=== PATIENT | female | born 1985 | race Caucasian/White ===

== ENCOUNTER → 2024-02-04 06:29 | Day surgery (SDC) | payer BC, SELFPAY | LOC: GI 06:29 | PROVIDERS: ATTENDING PHYSICIAN Internal Medicine | DX: K62.5 Hemorrhage of anus and rectum (principal); R19.7 Diarrhea, unspecified; K64.8 Other hemorrhoids; K63.5 Polyp of colon; R12 Heartburn; K29.50 Unspecified chronic gastritis without bleeding | CPT/HCPCS: 45380; 43239; 88305; 88342 ==

== ENCOUNTER → 2024-02-06 07:18 | Outpatient (REF) | payer BC, SELFPAY ==
[2024-02-06 08:22] LABS: Urine Albumin Negative (Neg - Trace); Urine Bilirubin Negative (Negative); Urine Character Clear (Clear); Urine Color Yellow; Urine Glucose Negative (Negative); Urine Ketone Negative (Negative); Urine Leukocyte Trace (Negative); Urine Nitrite Negative (Negative); Urine Occult Blood Negative (Negative); Urine Urobilinogen Negative (Neg - 1+)
[2024-02-06 08:28] LABS: % Basophils 0.7 % (0-2); % Eosinophils 1.1 % (0-6); % Immature Granulocytes 0.2 % (0-0.5); % Lymphocytes 36.5 % (20.5-51.1); % Monocytes 6.7 % (1.7-9.3); % Neutrophils 54.8 % (42.2-75.2); Absolute Eosinophils 0.1 10^3/uL (0-0.7); Absolute Monocytes 0.4 10^3/uL (0.1-0.6); Absolute Neutrophils 2.9 10^3/uL (1.4-6.5); Hematocrit 37.4 % (37.0-47.0); Hemoglobin 12.1 g/dL (12.0-16.0); Mean Corp Hgb Conc. 32.4 g/dL (33.0-37.0); Mean Corpuscular Hgb 29.7 pg (27.0-31.0); Mean Corpuscular Volume 91.9 fL (81.0-99.0); Nucleated Red Blood Cells % 0 %; Platelet Count 226 10^3/uL (130-400); Red Blood Cell Count 4.07 10^6/uL (4.20-5.40); Red Cell Dist. Width 12.1 % (11.5-14.5); White Blood Cell Count 5.3 10^3/uL (4.8-10.8)
[2024-02-06 08:38] LABS: Urine Bacteria Few (Negative); Urine Red Blood Cell 0-2 /HPF (0-2); Urine Squamous Cell >30 /LPF (Few)
[2024-02-06 09:01] LABS: ALT (SGPT) 23 U/L (0-35); AST (SGOT) 31 U/L (14-36); Albumin 4.5 g/dl (3.5-5.0); Alkaline Phosphatase 54 U/L (38-126); Blood Urea Nitrogen 16 mg/dl (7-17); Calcium 9.7 mg/dl (8.4-10.2); Carbon Dioxide 26 mmol/L (22-30); Chloride 104 mmol/L (98-107); Glucose 80 mg/dl (70-99); HDL Cholesterol 71 mg/dl; LDL Cholesterol, Calculated 65 mg/dl; Potassium 4.1 mmol/L (3.5-5.1); Sodium 137 mmol/L (135-145); Total Bilirubin 0.8 mg/dl (0.2-1.3); Total Cholesterol 147 mg/dl (50-199); Total Protein 7.2 g/dl (6.3-8.2); Triglyceride 57 mg/dl (10-149); Very Low Density Lipoprotein 11 mg/dl (0-30); eGFR > 60.00
[2024-02-06 09:36] LABS: TSH Reflex To Free T4 0.87 uIU/ml (0.47-4.68)
== END ==
LOC: REG 07:18
PROVIDERS: ATTENDING PHYSICIAN Student in an Organized Health Care Education/Training Program
DX: R31.29 Other microscopic hematuria (principal); Z00.00 Encounter for general adult medical examination without abnormal findings; Z86.79 Personal history of other diseases of the circulatory system
CPT/HCPCS: 36415; 80053; 80061; 81003; 81015; 84443; 85025

== ENCOUNTER → 2024-02-11 17:21 | Outpatient (REF) | payer BC, SELFPAY | LOC: WDC 17:21 | PROVIDERS: ATTENDING PHYSICIAN Student in an Organized Health Care Education/Training Program | DX: Z12.31 Encounter for screening mammogram for malignant neoplasm of breast (principal) | CPT/HCPCS: 77063; 77067 ==

== ENCOUNTER 2024-10-29 14:48 | Emergency (ER) | payer BC, SELFPAY ==
[2024-10-29 14:50] VITALS: BP 126/88
[2024-10-29 14:51] VITALS: BP 126/88
--- NOTE | 2024-10-29 15:09 | ED.GENMED ---
History of Present Illness
General
Chief Complaint: Heart Rate Problem
Source: patient
Exam Limitations: none
Time Seen by Provider: 10/29/24 15:02
Nursing documentation reviewed up to this point in time: agreed with
History of Present Illness
History of Present Illness:
39-year-old female presents to the emergency department after being in SVT. This began at 1:30 PM. 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 She has a history of SVT.
Past History
Past History
ED Past Medical History: Other (SVT) and Other (Scoliosis)
ED Past Surgical History: None
Social History
Tobacco: Non-smoker
Alcohol: None
Drug: None
Personal:
Living: with family
Employment: Employed
Review of Systems
Review of Systems
Allergies reviewed?: Yes
Constitutional: Reports no symptoms
EENT: Reports no symptoms
Respiratory: Reports no symptoms
Cardiac: Reports palpitations
ABD/GI: Reports no symptoms
: Reports no symptoms
Musculoskeletal: Reports no symptoms
Skin: Reports no symptoms
Neurological: Reports no symptoms
Endocrine: Reports no symptoms
Hematologic/Lymphatic: Reports no symptoms
Psychiatric: Reports no symptoms
Phy Exam
Physical Exam
Physical Exam:
Physical Exam
General: no apparent distress, not acutely ill
Neck: supple. no meningeal signs. normal posterior pharynx
Heart: s1/s2 regular rate and rhythm, no murmur. equal radial
pulses.
HEENT: Pupils equal round reactive to light, EOMI
Lungs: no acute respiratory distress. clear bilaterally
Abdomen: normal bowel sounds. not tender. no CVAT
Neuro: alert and oriented. no focal neurological deficits cranial nerves II through XII intact
Skin: no rash
Psychiatric: well kept. interactive and cooperative
Extremities: no edema. no calf tenderness. negative homans. good distal pulses
Course
Orders/Labs/Results
Orders:
Orders
10/29/24 14:50
ECG [Electrocardiogram (*1)] Urgent
Reason for Study: Tachycardia
EKG- Treatment ONCE
Vital Signs
Initial and Last Documented VS:
Initial Vital Signs
BP
126/88
10/29/24 14:50
Last Documented Vital Signs
Temp Pulse Resp BP
98.7 F 146 22 126/88
10/29/24 14:51 10/29/24 14:51 10/29/24 14:51 10/29/24 14:51
MDM/Problems Addressed
Differential Diagnosis Includes:
Atrial fibrillation, SVT
MDM/Problems Addressed:
39 yo female with paroxysmal SVT. Now in sinus rhythm. Stable for d/c. F/u with cardiology, follows with Dr. Khan.
Chronic conditions affecting care: Arrhythmia
Acute Exacerbation and/or Progression of Chronic Illness: Arrhythmia
*Pulse Oximetry
Patient hypoxic: no
*EKG
Interpreted by ED Provider?: Yes
EKG Intrepretation Date: 10/29/24
EKG Intrepretation Time: 15:04
Interpretation: normal
Comparison EKG: no comparison EKG present
Heart Rate: 78
Rate: normal
Rhythm: sinus
[place]: normal axis
Interval: normal interval
QRS Pattern: normal QRS
Ischemia: no ischemia
*Registered Nursing Professor Interpretation
Rate: tachycardiac
Interpretation: abnormal
Heart Rate: 149
Rhythm: SVT
*Critical Care Note
Total Time (30-74mins, 75-104mins- exclusive of procedures): Not Applicable
Patient Management
Social determinants of health affecting care: Living situation
Escalation/DeEscalation of care consider admission/obs:
admit not indicated
ED Attending Note
-
Portions of this chart may have been created with voice recognition software.� Occasional wrong word or��sound alike� substitutions may have occurred due to the inherent limitations of voice recognition software.
Discharge Plan
Departure
Patient Disposition: Home (Routine Discharge)
Date of Disposition: 10/29/24
Time of Disposition: 15:10
Patient with high blood pressure during this ER visit?: Yes
Condition: Good
Discharge Problem:
Paroxysmal supraventricular tachycardia
Instructions: Supraventricular tachycardia (SVT), BLOOD PRESSURE
Referrals:
Robson Khan MD [Active] - Call in 1-3 days for appt
Interventions
Interventions:
*Risk Screen - Suicide Last Done: 10/29/24 14:55
*General Assessment Last Done: 10/29/24 14:55
*Neglect/Abuse Screening Last Done: 10/29/24 14:55
*ED COVID-19 Vaccine History Last Done: 10/29/24 14:55
Discharge Date and Time
Print Language: SLOVAK
== END 2024-10-29 15:20 | disposition home or self-care (01) ==
LOC: EMR 14:48
PROVIDERS: EMERGENCY PHYSICIAN Emergency Medicine; FAMILY PHYSICIAN Student in an Organized Health Care Education/Training Program
DX: I47.19 Other supraventricular tachycardia (principal); M41.9 Scoliosis, unspecified; Z86.79 Personal history of other diseases of the circulatory system
CPT/HCPCS: 99283; 93005

== ENCOUNTER → 2024-11-23 14:27 | Outpatient (REF) | payer BC, SELFPAY ==
[2024-12-10 21:35] LABS: HPV, High Risk Not Detected; HPV, High Risk Source Cervical
== END ==
LOC: CPAP 14:27
PROVIDERS: ATTENDING PHYSICIAN Obstetrics & Gynecology Gynecology
DX: Z01.419 Encounter for gynecological examination (general) (routine) without abnormal findings (principal)
CPT/HCPCS: 87624

== ENCOUNTER 2025-02-03 06:00 | Day surgery (SDC) | payer BC, SELFPAY ==
[2025-01-26 11:57] VITALS: BMI 23.0
--- NOTE | 2025-01-26 12:24 | HPS.HSE ---
Family Physician
-
Family Physician: Nicolle Menendez MD
Chief Complaint
-
Supraventricular tachycardia.
History of Present Illness
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 She describes rapid palpitations associated with this diagnosis. She first experienced her arrhythmia around
2018. Her palpitations were able to be stopped at that time with Valsalva maneuvers. In 2021, she did require 6 mg of Adenosine in the ER due to SVT which would not break with multiple attempted Valsalva maneuvers. As of recently, she been
experiencing these episodes more often. She is on current pharmacological therapy with Metoprolol Tartrate as needed. Clearly her symptoms associated with her arrhythmia are greatly interfering with her overall quality of life. She is interested in
pursuing an EP study and SVT ablation for further arrhythmia management. She denies any current complaints today such as chest pain, shortness of breath, nausea, vomiting, diarrhea, lightheadedness, dizziness, cough, sore throat, or fever.
Medical History
Past Medical History
Past Medical History: Reports Other
Additional Past Medical History:
1. Supraventricular tachycardia, pharmacological therapy with Metoprolol Tartrate as needed.
2. Colon polyps.
3. Hemorrhoids.
4. Bilateral ulnar nerve entrapment syndrome.
5. Scoliosis with previous bracing.
6. Insomnia.
Past Surgical History: Reports Other
Additional Past Surgical History:
1. [place] teeth extraction.
2. Colonoscopy.
3. Endoscopy.
Social History
Tobacco: Non-smoker
Alcohol: Occasional
Personal:
Living: With Family (in a 2 story home with her and 2 kids )
Family History
Family History: Not pertinent
Allergies / Home Medications
Allergy/Medication List:
Home medications:
1. Mirena 1 intrauterine device.
2. Metoprolol Tartrate 25 mg p.o. daily as needed.
3. Trazodone 100 mg p.o. at bedtime.
4. Zolpidem 5 mg p.o. at bedtime.
Allergies: Amoxicillin. Erythromycin.
Review of Systems
-
A 12 point ROS was completed and negative except as noted: Yes
Physical Exam
Vital Signs
Blood pressure 118/83. Heart rate 68. Respirations 18. Pulse ox 100% on room air.
Height 5 feet, 3 inches. Weight 58.9 kg. BMI 23.0.
Physical Exam
General: Well Developed, Well Nourished and No Apparent Distress
HEENT: NormoCephalic, Moist mucous membranes, Atraumatic and PERRLA
Respiratory: Clear
Cardiac: Bradycardia
GI: Soft, Non Tender and Non Distended
Musculoskeletal: No Edema and Normal Gait & Station
Skin: Warm and Dry
Neuro: AO x 3 and Nonfocal/grossly intact
Laboratory Results
-
DIAGNOSTIC STUDIES as of 01/26/2025: White blood cell count 6.9. Hemoglobin 13.3. Platelet count 238,000. Sodium 140. Potassium 4.1. BUN 15. Creatinine 0.7. Glucose 90. Calcium 9.7. Magnesium 2.0. AST 24. ALT 20. Albumin 4.9. Urine HCG negative.
EKG 01/26/2025: Sinus bradycardia.
Impression/Plan
-
IMPRESSION/PLAN:
1. Supraventricular tachycardia: The patient is in need of an EP study and SVT ablation with Dr. Robson Khan on 02/03/2025. The benefits and risks of the procedure have been explained to the patient. The patient understands these risks and wishes
to proceed.
[2025-01-26 12:31] LABS: % Basophils 0.9 % (0-2); % Eosinophils 0.6 % (0-6); % Immature Granulocytes 0.1 % (0-0.5); % Monocytes 5.8 % (1.7-9.3); % Neutrophils 59.6 % (42.2-75.2); Absolute Basophils 0.1 10^3/uL (0-0.2); Absolute Lymphocytes 2.3 10^3/uL (1.2-3.4); Absolute Monocytes 0.4 10^3/uL (0.1-0.6); Absolute Neutrophils 4.1 10^3/uL (1.4-6.5); Hematocrit 40.1 % (37.0-47.0); Hemoglobin 13.3 g/dL (12.0-16.0); Mean Corp Hgb Conc. 33.2 g/dL (33.0-37.0); Mean Corpuscular Hgb 30.1 pg (27.0-31.0); Mean Corpuscular Volume 90.7 fL (81.0-99.0); Mean Platelet Volume 10.2 fL (7.4-10.4); Nucleated Red Blood Cells % 0 %; Platelet Count 238 10^3/uL (130-400); Red Blood Cell Count 4.42 10^6/uL (4.20-5.40); Red Cell Dist. Width 12.2 % (11.5-14.5); White Blood Cell Count 6.9 10^3/uL (4.8-10.8)
[2025-01-26 12:47] LABS: HCG, Urine Qualitative Screen Negative
[2025-01-26 13:02] LABS: ALT (SGPT) 20 U/L (0-35); AST (SGOT) 24 U/L (14-36); Albumin 4.9 g/dl (3.5-5.0); Alkaline Phosphatase 57 U/L (38-126); Blood Urea Nitrogen 15 mg/dl (7-17); Calcium 9.7 mg/dl (8.4-10.2); Carbon Dioxide 27 mmol/L (22-30); Chloride 101 mmol/L (98-107); Estimated Creatinine Clearance 87 ml/min; Glucose 90 mg/dl (70-99); Potassium 4.1 mmol/L (3.5-5.1); Sodium 140 mmol/L (135-145); Total Bilirubin 0.8 mg/dl (0.2-1.3); Total Protein 7.6 g/dl (6.3-8.2); eGFR > 60.00
[2025-02-03] VITALS (20 sets, daily range): BP systolic 94–126; BP diastolic 53–99; BMI 22.7
[2025-02-03 06:44] LABS: HCG, Urine Qualitative Screen Negative
--- NOTE | 2025-02-03 09:31 | ITS.CL.ABL ---
Cook Supervisor - Ablation
Ablation
Procedure Report:
ELECTROPHYSIOLOGY ABLATION REPORT
Date of Procedure: February 03, 2025
Referring: Dr. Robson Khan
INDICATION: Abrupt onset offset tachycardia refractory to medications
HISTORY: As above she has noticed over the last 5 years abrupt onset offset tachycardia which she can sometimes break with Valsalva typically coming on after periods of fatigue or long work hours.
PROCEDURE:
Baseline intracardiac measurements were obtained in sinus rhythm.��HRA, HIS, RVA and CS catheters were placed. Isoproterenol infusion was performed. 3D mapping with dynaTrace software mapping system was performed.
Atrial decremental extrastimuli were delivered from the HRA and the CS.��Single and double extrastimuli as well as burst pacing were performed from both sites in both the baseline state and with isoproterenol infusion.��Atrial and AVN antegrade
ERP�s were determined.��Antegrade as well as retrograde AVN [place] CL�s were determined.
MEASUREMENTS:
BASELINE
A-A:�800 ms
P-P:�800 ms
A-H:�76 ms
H-V����44 ms
P-R:���148 ms
QRS:�79 ms
QT:����430 ms
SNRT: Normal at 600 ms
AVN [place]: 500 ms in the sedated state
AVN Fast Pathway ERP: 600�480 ms
AVN Slow Pathway ERP: 600�410 ms
HIS-Purkinje System: Normal; no distal block
Retrograde Conduction Decremental, Retrograde Block 520 ms
Evidence for typical AV Sally Reentry as the tachycardia diagnosis included: (1)��An concentric atrial activation sequence during SVT with earliest atrial activation located at the fast pathway position along the decapolar CS catheter, (2)
ventricular pacing from the RVA showed earliest retrograde atrila activation at the fast pathway position along the decapolar CS catheter, matching that seen during SVT, (3) Atrial activation during SVT within the first 40 ms of the QRS complex,
excluding bypass tract mediated tachycardia (4) Initiation of SVT was dependent on a critical AH interval (slow pathway engagement), (5) Ventricular pacing at a CL 20-30 ms faster than the SVT CL during the SVT demonstrated advancement of the atrial
electrogram to the pacing CL and when
pacing was terminated, a V-A-V pattern with continuation of SVT was observed practically excluding AT as the SCT mechanism, (6) VA time during tachycardia minus VA time during pacing was less than -40 ms. Conversely VA time during pacing minus VA
time during tachycardia was greater than 85 ms both supporting AV sally reentry tachycardia as the mechanism
SVT was initiated by atrial extrastimuli
SVT could be terminated by ventricular overdrive pacing which terminate tachycardia reliably in the AV node prior to atrial activation.
The SVT cycle length was 450 ms.; SVT was well-tolerated hemodynamically.
Radiofrequency Catheter Ablation:
Following determination of the SVT mechanism, isoproterenol was discontinued and baseline conditions were resumed.��
A deflectable tip mapping/ablation catheter was placed through a 10 [place] steerable sheath and 3D mapping was utilized with a 4 mm sapphire catheter to delineate slow pathway region, fractionated atrial electrogram, and define the hiss cloud and
compact AV node. The CS was extremely vertical with a short distance less than 5 mm between compact AV node recordings and proximal his recordings and the area required for successful slow pathway modification. At a 1-5 AV ratio with a small
fractionated electrogram and a tall ventricular electrogram junctional beats both typical and atypical were noted and somewhat rapid in the 350 to 450 ms range. A total of 4.5 minutes of radiofrequency energy was delivered at 50 W, 52 degrees and
up to 32nd lesions.
RF applications were delivered during ventricular pacing using a temperature controlled system.��RF application resulted in nearly immediate (3 seconds) junctional beats with retrograde one-to-one.��A 4 mm tip RF catheter was used with the maximum
power��set to 50 W and the maximum temperature set to 52�degrees C.
After a 30 minute waiting period, stimulation was repeated.��Midline retrograde activation was preserved during RV apical stimulation.
No sustained SVT was induced, a marked contrast to the pre-ablation situation.
COMPLICATIONS: None
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 After ablation throughout a 30-minute waiting phase tachycardia was not inducible with 1 AV sally echo beat as endpoint. Distance between compact AV node
and proximal His bundle recording was less than 5 mm to area of successful slow pathway modification.
RECOMMENDATIONS:
1. Out of bed in 4 hours
2. Will plan for same-day discharge and she can continue to consider metoprolol as a as needed if she has recurrent tachycardia. We discussed activity restrictions in detail and she will hold off on yoga, Pilates, and aggressive working out for 5
days.
== END 2025-02-03 14:00 | disposition home or self-care (01) ==
LOC: CATH 06:00
PROVIDERS: ATTENDING PHYSICIAN Internal Medicine Cardiovascular Disease; FAMILY PHYSICIAN Student in an Organized Health Care Education/Training Program
DX: I47.10 Supraventricular tachycardia, unspecified (principal); Z86.0100 Personal history of colon polyps, unspecified; Z87.19 Personal history of other diseases of the digestive system; M41.9 Scoliosis, unspecified; G47.00 Insomnia, unspecified; Z79.899 Other long term (current) drug therapy; Z88.1 Allergy status to other antibiotic agents; Z88.0 Allergy status to penicillin
CPT/HCPCS: C1730; C1894; C1766; C1733; 36415; 80053; 81025; 83735; 85025; 93005; 93623; 93653

== ENCOUNTER → 2025-02-14 17:59 | Outpatient (REF) | payer BC, SELFPAY | LOC: WDC 17:59 | PROVIDERS: ATTENDING PHYSICIAN Obstetrics & Gynecology Gynecology; FAMILY PHYSICIAN Student in an Organized Health Care Education/Training Program | DX: Z12.31 Encounter for screening mammogram for malignant neoplasm of breast (principal) | CPT/HCPCS: 77063; 77067 ==

== ENCOUNTER → 2025-02-15 07:02 | Outpatient (REF) | payer BC, SELFPAY ==
[2025-02-15 08:39] LABS: % Basophils 0.6 % (0-2); % Eosinophils 0.9 % (0-6); % Immature Granulocytes 0.2 % (0-0.5); % Lymphocytes 35.5 % (20.5-51.1); % Neutrophils 56.8 % (42.2-75.2); Absolute Lymphocytes 1.7 10^3/uL (1.2-3.4); Absolute Monocytes 0.3 10^3/uL (0.1-0.6); Absolute Neutrophils 2.7 10^3/uL (1.4-6.5); Hematocrit 41.6 % (37.0-47.0); Hemoglobin 13.5 g/dL (12.0-16.0); Mean Corp Hgb Conc. 32.5 g/dL (33.0-37.0); Mean Corpuscular Hgb 29.3 pg (27.0-31.0); Mean Corpuscular Volume 90.4 fL (81.0-99.0); Mean Platelet Volume 9.9 fL (7.4-10.4); Nucleated Red Blood Cells % 0 %; Platelet Count 248 10^3/uL (130-400); Red Cell Dist. Width 12.2 % (11.5-14.5); White Blood Cell Count 4.7 10^3/uL (4.8-10.8)
[2025-02-15 09:06] LABS: ALT (SGPT) 27 U/L (0-35); AST (SGOT) 26 U/L (14-36); Alkaline Phosphatase 59 U/L (38-126); Blood Urea Nitrogen 14 mg/dl (7-17); Calcium 9.7 mg/dl (8.4-10.2); Carbon Dioxide 28 mmol/L (22-30); Chloride 109 mmol/L (98-107); Glucose 88 mg/dl (70-99); HDL Cholesterol 72 mg/dl; LDL Cholesterol, Calculated 78 mg/dl; Potassium 4.4 mmol/L (3.5-5.1); Sodium 143 mmol/L (135-145); Total Bilirubin 0.6 mg/dl (0.2-1.3); Total Cholesterol 159 mg/dl (50-199); Total Protein 7.6 g/dl (6.3-8.2); Triglyceride 45 mg/dl (10-149); Very Low Density Lipoprotein 9 mg/dl (0-30); eGFR > 60.00
[2025-02-15 09:30] LABS: Urine Albumin Negative (Neg - Trace); Urine Bilirubin Negative (Negative); Urine Character Clear (Clear); Urine Color Yellow; Urine Glucose Negative (Negative); Urine Ketone Negative (Negative); Urine Leukocyte Negative (Negative); Urine Nitrite Negative (Negative); Urine Occult Blood 1+ (Negative); Urine Specific Gravity 1.005 (<1.030); Urine Urobilinogen Negative (Neg - 1+)
[2025-02-15 09:41] LABS: TSH Reflex To Free T4 1.08 uIU/ml (0.47-4.68)
[2025-02-15 10:32] LABS: Urine Squamous Cell >30 /LPF (Few)
[2025-02-15 10:33] LABS: Urine Amorphous Seen; Urine Red Blood Cell 0-2 /HPF (0-2); Urine White Cell 0-2 /HPF (0-5)
[2025-02-15 19:42] LABS: Vitamin B12 510 pg/ml (239-931)
[2025-02-16 23:39] LABS: IgA 225 mg/dl (70-400); IgG 1319 mg/dl (700-1600); IgM 67 mg/dl (40-230)
[2025-02-17 08:45] LABS: Celery <0.10 kU/L (<=0.34)
== END ==
LOC: REG 07:02
PROVIDERS: ATTENDING PHYSICIAN Student in an Organized Health Care Education/Training Program
DX: Z00.00 Encounter for general adult medical examination without abnormal findings (principal); Z86.79 Personal history of other diseases of the circulatory system; G56.23 Lesion of ulnar nerve, bilateral upper limbs; R31.29 Other microscopic hematuria; Z80.51 Family history of malignant neoplasm of kidney; R19.7 Diarrhea, unspecified
CPT/HCPCS: 36415; 80053; 80061; 81003; 81015; 82607; 82784; 84443; 85025; 86003

== ENCOUNTER → 2025-06-27 07:45 | Outpatient (REF) | payer BC, SELFPAY | LOC: WDC 07:45 | PROVIDERS: ATTENDING PHYSICIAN Student in an Organized Health Care Education/Training Program | DX: R92.333 Mammographic heterogeneous density, bilateral breasts (principal) | CPT/HCPCS: 76641 ==

== ENCOUNTER → 2025-08-04 12:04 | Outpatient (REF) | payer BC, SELFPAY | LOC: DHSLP 12:04 | PROVIDERS: ATTENDING PHYSICIAN Student in an Organized Health Care Education/Training Program | DX: G47.19 Other hypersomnia (principal); R06.83 Snoring | CPT/HCPCS: 95800 ==